=== PATIENT | female | born 1960 | race Asian ===

== ENCOUNTER 2024-04-12 08:24 | Emergency (ER) | payer OTHER, SELFPAY ==
[2024-04-12 08:31] VITALS: BP 135/55; PULSE 71; RESP 17; TEMP 36.9; O2SAT 97; BMI 24.6
--- NOTE | 2024-04-12 08:32 | ED.FALL ---
HPI - Fall General Chief Complaint: Extremity Injury, Upper Stated Complaint: fall, poss L wrist fracture Time Seen by Provider: 04/12/24 08:32 Source: patient, RN notes reviewed and old records reviewed Mode of arrival: Family Vehicle Limitations: no limitations History of Present Illness HPI Narrative: 64-year-old female with no reported medical issues who had a fall on outstretched hand yesterday. Patient states she slipped fell backwards with her arm out and had pain and swelling with some deformity immediately after. Patient states has been persistent. Has not improved. She presents today after she was able to find a ride. She denies any other injuries. States she did not hit her head. No neck or back pain, no chest pain or shortness of breath. No nausea or vomiting. No other GI or urinary symptoms. Denies any numbness tingling or weakness but does have pain with any movement of the wrist. Patient states no abrasions or cuts. Patient has been wearing a Velcro splint which has been helpful. She states no daily medications. No prior surgeries. No known drug allergies. No tobacco, alcohol or recreational drugs. She presents with a family friend. Related Data Allergies Allergy/AdvReac Type Severity Reaction Status Date / Time No Allergy Information Allergy Verified 04/12/24 08:37 Available Review of Systems Review of Systems ROS Unobtainable: All systems reviewed & are unremarkable except as noted in HPI and below Patient History Social History Smoking Status: Never smoker Exam Narrative Exam Narrative: GENERAL: Alert and oriented x three, well-appearing female in mild distress, HEENT: Head normocephalic, atraumatic, EOMI, pupils reactive, face symmetric, moist mucous membranes NECK: Supple, full range of motion, no cervical vertebral tenderness. CARDIOVASCULAR: Regular rate and rhythm without murmurs, rubs or gallops. RESPIRATORY: Breath sounds equal bilaterally, no wheezes rales or rhonchi. ABDOMEN: Soft, nontender. Normoactive bowel sounds all 4 quadrants. No guarding or rebound, rigidity, no mass : No CVA tenderness EXTREMITIES: Normal range of motion except at the left wrist,, no clubbing. Patient has a edema her left wrist and hand. Nontender through the fingers, metacarpals but is tender over the wrist. There is some obvious deformity. No tenderness of the left elbow, shoulder or upper arm. Patient is able to flex, extend, adduct and abduct all 5 fingers and without any issue movement of the thumb. 2+ radial pulse. Cap refill less than 2 seconds in all 5 fingers. Neurovascularly intact. NEUROLOGICAL: Cranial nerves II through XII grossly intact. Moving all extremities SKIN: Warm, dry, no petechiae, no rashes or lesions. Initial Vital Signs Initial Vital Signs: Vital Signs Temperature 98.5 F 04/12/24 08:31 Pulse Rate 71 04/12/24 08:31 Respiratory Rate 17 04/12/24 08:31 Blood Pressure 135/55 L 04/12/24 08:31 Pulse Oximetry 97 04/12/24 08:31 Oxygen Delivery Method Nasal Cannula 04/12/24 08:31 Course Orders Ordered: ED Orders 04/12/24 08:40 XR wrist LT min 3V Stat Vital Signs Vital signs: Vital Signs - 8 hr 04/12/24 08:31 Temperature 98.5 F Pulse Rate 71 Respiratory Rate 17 Blood Pressure 135/55 L Pulse Oximetry 97 Oxygen Delivery Method Nasal Cannula MDM - Fall Imaging Data Extremity x-ray #1: Radiologist's Impression: Close Wrist X-Ray (Signed) Chandra Morris - 04/12/24 [place] [address] XRay Report Signed Patient: Leslye Dior MR#: [id number] : 1960 Acct:[id number] Age/Sex: 64 / F Date of Service: 04/12/24 Loc: ED Accession Number: [id number] Procedure: XR wrist LT min 3V Ordering Provider: Tiffanie Lopez D.O. PROCEDURE: XR WRIST LT MIN 3V INDICATIONS: fall, FOOSH, deformity TECHNIQUE: 4 views of the wrist were acquired. COMPARISON: None. FINDINGS: Bones: Comminuted impacted distal radius fracture, likely extending to the articular surface. Associated ulnar styloid avulsion. Distal radial ulnar dislocation. Soft tissues: No suspicious soft tissue calcifications. IMPRESSION: Impacted distal radius fracture likely extends to the articular surface with associated ulnar styloid avulsion and distal radial ulnar dislocation. Dictated by: Chandra Morris M.D. on 04/12/2024 at 9:01 Approved by: Chandra Morris M.D. on 04/12/2024 at 9:02 [facility] Narrative Medical decision making narrative: 64-year-old female with reported mechanical ground level fall, no head injury, that occurred yesterday. Patient has obvious deformity and pain over the wrist. X-rays show, impacted distal radial fracture, associated ulnar styloid avulsion. Distal radial ulnar dislocation. Plan for follow up with Orthopedic surgery, patient is splinted. She was neurovascularly intact and post splinting. Splinting was placed with nursing and myself with some pressure over the distal radial portion to attempt to improve alignment. Discharge Plan Departure Patient Disposition: Home Clinical Impression: Fracture of wrist Instructions: DI for Wrist Fracture Activity Restrictions/Additional Instructions: Follow up with Orthopedic surgery, please call today to set up a follow up appointment in the next week. They have offices in [facility]. You can take Tylenol up to a 1000 mg every 6 hours as needed for pain. Splint Care: Keep splint clean and dry. Elevated affected body part to decrease swelling. OK to use ice pack on the affected body part. Use for 15-20 minutes each time, for 5-6x per day. If you develop worsening pain, numbness, tingling, discoloration of the affected body part, loosen the splint by loosening the BRADLEY wrap, and either see your doctor for an urgent re-assessment, or return to the Emergency Department. Return to the Emergency Department for any new or worsening symptoms. Referrals: Buddy West MD [Physician] - Stand Alone Forms: Patient Portal/API
--- NOTE | 2024-04-12 08:40 | DI.RAD.S_ITS ---
PROCEDURE: XR WRIST LT MIN 3V INDICATIONS: fall, FOOSH, deformity TECHNIQUE: 4 views of the wrist were acquired. COMPARISON: None. FINDINGS: Bones: Comminuted impacted distal radius fracture, likely extending to the articular surface. Associated ulnar styloid avulsion. Distal radial ulnar dislocation. Soft tissues: No suspicious soft tissue calcifications. IMPRESSION: Impacted distal radius fracture likely extends to the articular surface with associated ulnar styloid avulsion and distal radial ulnar dislocation. Dictated by: Chandra Morris M.D. on 04/12/2024 at 9:01 Approved by: Chandra Morris M.D. on 04/12/2024 at 9:02
== END 2024-04-12 09:44 | disposition home or self-care (01) ==
PROVIDERS: Emergency Provider Emergency Medicine
DX: S52.512A Displaced fracture of left radial styloid process, initial encounter for closed fracture (principal); W01.0XXA Fall on same level from slipping, tripping and stumbling without subsequent striking against object, initial encounter
CPT/HCPCS: 73110; 99283; 99284